=== PATIENT | female | born 1950 | race Caucasian/White ===

== ENCOUNTER → 2016-05-18 10:03 | Day surgery (SDC) | payer MEDICARE, OTHER ==
[~2016-05-18 10:03] MED LIST: Lidocain 1% EPI 1:100,000 * 30 ML MDV ONE; Sodium Bicarbonate 8.4% SYR* 10 ML SYRINGE ONE
[2016-05-18 13:01] VITALS: BP 120/76
--- NOTE | 2016-05-19 10:58 | OP ---
DATE OF OPERATION: 05/18/16 - [facility] DATE OF : 50 SURGEON: Vincenzo Arriola MD SUPERVISOR LIME: DEANA Sheikh ANESTHESIOLOGIST: None. ANESTHESIA: Local only with 1% lidocaine with epinephrine. PRE-OP DIAGNOSIS: Left palm mass. POST-OP DIAGNOSIS: Left palm mass consistent with Dupuytren disease. OPERATIVE PROCEDURE: Excision of Dupuytren disease, left palm. INDICATIONS: Marion is a 65-year-old female with enlarging mass in the left palm. In the absence of other Dupuytren disease, she also had began to develop a little bit of an extension of the nodule proximally in line with the long finger ray. We had talked about risks and benefits and she had elected to undergo excision of the mass. ESTIMATED BLOOD LOSS: 5 mL. COMPLICATIONS: None. FINDINGS: The mass is consistent with Dupuytren nodule and a little bit of a developing central core coming back proximally. DESCRIPTION OF PROCEDURE: Marion was seen in the preoperative holding area and the correct site and side were marked. We had a time-out. Then, I injected the operative area with 1% lidocaine with epinephrine. We awaited for about 20 to 30 minutes. Then, we came back to the operating room, where the arm was prepped and draped in the usual fashion and a formal time-out was performed. A Phi incision was made over the nodule and coming back a little bit over that central cord. Full-thickness flaps were raised right off of the palmar fascia. This was noticed to be and that mass was a large Dupuytren nodule. After full-thickness flaps were raised and sewn back, I went ahead and clipped the central cord proximally and then raised it directly off the flexor tendon sheath, snipping the vertical septa of Legueu and Juvara as well, till I had excised the entirety of the diseased tissue. The proximal aspect of the A1 kristin was visualized after the Dupuytren disease was excised. At this point, everything looked good. She was able to make a nice fist and fully open and close the fingers. I went ahead and irrigated the wound and closed the wound with some 5-0 nylon suture. Wound was then dressed with Xeroform, 4x4, some sterile Webril, and gauze. She was taken to the recovery room in stable condition. [id number]/[facility] #: [id number] [facility]
== END | disposition home or self-care (01) ==
LOC: OREAST 10:03
PROVIDERS: ATTEND Orthopaedic Surgery Hand Surgery
DX: M72.0 Palmar fascial fibromatosis [Dupuytren] (principal)
CPT/HCPCS: 88304

== ENCOUNTER 2016-08-29 20:36 | Emergency (ER) | payer OTHER ==
[2016-08-29 20:50] VITALS: BP 130/90
[2016-08-29] MEDS ORDERED: Lidocaine 1% MPF* 2 ML VIAL INJ ONE (21:06)
--- NOTE | 2016-08-29 21:06 | UC ---
Laceration HPI - HPI Summary HPI Summary: WASHING DISHES TONIGHT ABOUT 90 MINUTES AGO. ACCIDENTALLY CRASHED A GLASS AGAINST THE FAUCET WHICH BROKE IN HER HAND. SUSTAINED A LACERATION TO PROXIMAL RIGHT 5TH FINGER. LAST TETANUS JUNE 2016. - History Of Current Complaint Chief Complaint: UCLaceration Stated Complaint: HAND LACERATION Time Seen by Provider: 08/29/16 20:53 Hx Obtained From: Patient Laceration Location: Finger - RIGHT 5TH FINGER Mechanism Of Injury: Sharp Trauma Severity: Moderate Pain Intensity: 6 Pain Scale Used: 0-10 Numeric Aggravating Factors: Movement Related History: Dominant Hand Right - Allergies/Home Medications Allergies/Adverse Reactions: Allergies Allergy/AdvReac Type Severity Reaction Status Date / Time Interferons Allergy Intermediate See Comment Verified 08/29/16 20:50 Iodixanol [From Visipaque] Allergy Intermediate Swelling Verified 08/29/16 20:50 Of Face,Lips,& Throat PMH/Surg Hx/FS Hx/Imm Hx Endocrine History Of: Reports: Thyroid Disease, Hypothyroidism Denies: Diabetes Cardiovascular History Of: Denies: Cardiac Disorders, Hypertension, Congestive Heart Failure Respiratory History Of: Reports: Asthma Denies: COPD GI/ History Of: Denies: Renal Disease Cancer History Of: Denies: Breast Cancer - Surgical History Surgical History: Yes Surgery Procedure, Year, and Place: thyroidectomy - cancer. partial nephrectomy (right) - cancer - Family History Known Family History: Negative: Hypertension - Social History Alcohol Use: Weekly Substance Use Type: None Smoking Status (MU): Never Smoked Tobacco Review of Systems Constitutional: Negative Skin: Other - LACERATION Respiratory: Negative Cardiovascular: Negative Gastrointestinal: Negative All Other Systems Reviewed And Are Negative: Yes Physical Exam Triage Information Reviewed: Yes Appearance: Well-Appearing, No Pain Distress, Well-Nourished Vital Signs: Initial Vital Signs Temp 97.9 F 08/29/16 20:45 Pulse 92 08/29/16 20:45 Resp 16 08/29/16 20:45 BP 130/90 08/29/16 20:45 Pulse Ox 98 08/29/16 20:45 Vital Signs Reviewed: Yes Eyes: Positive: Conjunctiva Clear ENT: Positive: Hearing grossly normal Neck: Positive: Supple Respiratory: Positive: No respiratory distress, No accessory muscle use Cardiovascular: Positive: Pulses Normal Abdomen Description: Positive: Soft Musculoskeletal: Positive: ROM Intact, No Edema Neurological: Positive: Alert Psychological: Positive: Normal Response To Family, Age Appropriate Behavior Skin: Positive: Other - 1.5CM LINEAR LACERATION PROXIMAL MEDIAL RIGHT 5TH FINGER Laceration Repair - Laceration Repair 1 Description: Linear Laceration Size After Repair: Length (cm) - 1.5CM, Width (mm) - 0MM, Depth (mm) - 4MM Modified For Repair: No Type Injection: Local Anesthesia Used: 1.0% Lido Irrigation With Pressure Irrigation Device: Yes Closure Material: Sutures - 5 SIMPLE INTERRUPTED Closure Method: Single Layer Suture Of: Skin Suture Type: Other - 5-0 SURGIPRO Laceration Course/Dx - Differential Dx - Laceration/Wound Provider Diagnoses: LACERATION REPAIR RIGHT 5TH FINGER Discharge - Discharge Plan Condition: Stable Disposition: HOME Patient Education Materials: Laceration (ED) Referrals: Jovanni Pacheco MD [Primary Care Provider] - If Needed Additional Instructions: APPLY THIN LAYER ANTIBIOTIC OINTMENT UNDER BANDAGE FOR FIRST 3-4 DAYS ONLY. CHANGE BANDAGE DAILY AND NEEDED IF IT BECOMES SOILED OR WET. SEEK FOLLOW-UP IF YOU DEVELOP SPREADING REDNESS OF THE SKIN, PURULENT DRAINAGE, FEVER, INCREASED PAIN OR ANY OTHER CONCERNING SYMPTOMS. RETURN FOR SUTURE REMOVAL IN 10 DAYS
== END 2016-08-29 22:05 | disposition home or self-care (01) ==
LOC: UCEAST 20:36
DX: S61.216A Laceration without foreign body of right little finger without damage to nail, initial encounter (principal); W25.XXXA Contact with sharp glass, initial encounter; Y93.G1 Activity, food preparation and clean up; Y92.9 Unspecified place or not applicable; E03.9 Hypothyroidism, unspecified; J45.909 Unspecified asthma, uncomplicated
CPT/HCPCS: 12001; 99211; G0463

== ENCOUNTER 2016-09-13 12:18 | Emergency (ER) | payer MEDICARE ==
--- NOTE | 2016-09-13 15:06 | UC ---
HPI Wound/Suture Re-check - HPI Summary HPI Summary: 66 y/o female presents to the urgent care for stich removal. Patient reports wound is healing well and denies pain, redness, SOB, chest pain, N/V/D - History Of Current Complaint Stated Complaint: STITCH REMOVAL Time Seen by Provider: 09/13/16 15:03 Hx Obtained From: Patient Surgical Site: RT fifth digit above the PIJ Pain Intensity: 0 Pain Scale Used: 0-10 Numeric Procedure Type: stich removal - Allergies/Home Medications Allergies/Adverse Reactions: Allergies Allergy/AdvReac Type Severity Reaction Status Date / Time Interferons Allergy Intermediate See Comment Verified 09/13/16 15:09 Iodixanol [From Visipaque] Allergy Intermediate Swelling Verified 09/13/16 15:09 Of Face,Lips,& Throat PMH/Surg Hx/FS Hx/Imm Hx Previously Healthy: Yes - Surgical History Surgical History: Yes Surgery Procedure, Year, and Place: thyroidectomy - cancer. partial nephrectomy (right) - cancer - Family History Known Family History: Negative: Hypertension - Social History Alcohol Use: Weekly Substance Use Type: None Smoking Status (MU): Never Smoked Tobacco Review of Systems Constitutional: Negative Skin: Other - laceration in the fifth dig above the PIJ with 5 stiches ENT: Negative Respiratory: Negative Cardiovascular: Negative Gastrointestinal: Negative Genitourinary: Negative Motor: Negative Neurovascular: Negative Musculoskeletal: Negative Neurological: Negative Psychological: Negative All Other Systems Reviewed And Are Negative: Yes Physical Exam Triage Information Reviewed: Yes Appearance: Well-Appearing, No Pain Distress, Well-Nourished, Thin Vital Signs Reviewed: Yes Eye Exam: Normal ENT Exam: Normal Neck exam: Normal Neck: Positive: Supple, Nontender Respiratory Exam: Normal Respiratory: Positive: Chest non-tender, Lungs clear Skin Exam: Normal - fifth digit with sutured laceration above the PIJ. healing well no erythema or swelling observed. No tenderness on palpation. Neurovascular intact. Course/Dx - Course Course Of Treatment: Patient presented today for suture removal at the right fifth digit above the PIJ, healing well. 5 stitches removed without any problem. Patient tolerated well procedure. Skin was well approximated. No erythema or swelling observed. Neurovascular intact. Patient advised to keep wound dry. - Differential Dx - Laceration/Wound Provider Diagnoses: Suture removal Discharge - Discharge Plan Condition: Stable Disposition: HOME Patient Education Materials: Laceration (ED) Referrals: Jovanni Pacheco MD [Primary Care Provider] - Additional Instructions: please keep the wound dry at all times. If symptoms worsen please return to the urgent care for further treatment.
[2016-09-13 15:08] VITALS: BP 122/84
== END 2016-09-13 15:43 | disposition home or self-care (01) ==
LOC: UCEAST 12:18
DX: S61.216D Laceration without foreign body of right little finger without damage to nail, subsequent encounter (principal); X58.XXXD Exposure to other specified factors, subsequent encounter; Y92.9 Unspecified place or not applicable; Z91.041 Radiographic dye allergy status

== ENCOUNTER 2017-08-17 05:59 | Day surgery (SDC) | payer MEDICARE ==
[~2017-08-17 05:59] MED LIST changes: +Buffered Lidocaine 0.9% SYRIN* 5 ML/SYR SYRINGE INTRADERM ONE; -Lidocain 1% EPI 1:100,000 * 30 ML MDV ONE; -Sodium Bicarbonate 8.4% SYR* 10 ML SYRINGE ONE
[2017-08-17] MEDS ORDERED: Famotidine TAB* 20 MG PO ONE (06:00)
[2017-08-17] MEDS ORDERED: Famotidine TAB* 20 MG ONE (06:08)
[2017-08-17] MEDS ORDERED: Buffered Lidocaine 0.9% SYRIN* 5 ML/SYR SYRINGE ONE (06:08)
[2017-08-17 06:50] LABS: ABS Basophils 0.1 10^3/ul (0-0.2); ABS Eosinophils 0.1 10^3/ul (0-0.6); ABS Lymphocytes 2.1 10^3/ul (1.0-4.8); ABS Monocytes 0.4 10^3/ul (0-0.8); ABS Neutrophils 4.7 10^3/ul (1.5-7.7); ABS Nucleated RBC 0 10^3/ul; Eosinophil % 1.4 % (0-6); Hematocrit 43 % (35-47); Hemoglobin 14.6 g/dl (12.0-16.0); Lymphocyte % 28.4 % (25-47); Mean Corpuscular HGB Conc 34 g/dl (31-36); Mean Corpuscular Hemoglobin 29 pg (27-31); Mean Corpuscular Volume 85 fL (80-97); Mean Platelet Volume 7.4 um3 (7.4-10.4); Nucleated Red Blood Cells % 0.1; Platelet Count 234 10^3/ul (150-450); Red Blood Count 5.04 10^6/ul (4.0-5.4); Red Cell Distribution Width 14 % (10.5-15); White Blood Count 7.5 10^3/ul (3.5-10.8)
[2017-08-17] MEDS ORDERED: ceFOXitin(*) 2 GM in NS 0.9% 50 ML* 50 ML IVPB ONE (07:00)
[2017-08-17] MEDS ORDERED: Lidocaine 1% INJ* 10 MG/ML 30 ML SDV ONE (07:13)
[2017-08-17] MEDS ORDERED: Midazolam* 1 MG/ML 5 ML VIAL (5 MG) ONE (07:20)
[2017-08-17] MEDS ORDERED: fentaNYL* 50 MCG/ML 2 ML VIAL (100 MCG VIAL) ONE (07:20)
[2017-08-17] MEDS ORDERED: Ketorolac INJ* 30 MG/ML 1 ML VIAL ONE (08:14)
[2017-08-17] MEDS ORDERED: Propofol* 10 MG/ML 20 ML BTL IV PUSH ONE (08:14)
[2017-08-17] MEDS ORDERED: DiMENhydriNATE IV* 50 MG/ML VIAL ONE (08:14)
[2017-08-17] MEDS ORDERED: Lidocaine 2% PF * 5 ML VIAL ONE (08:14)
[2017-08-17 08:54] VITALS: BP 146/83
[2017-08-17] MEDS ORDERED: Naloxone* 0.4 MG/ML 1 ML VIAL IV PRN (09:19)
[2017-08-17] MEDS ORDERED: Acetaminophen TAB* 325 MG PO PRN (09:19)
--- NOTE | 2017-08-18 00:50 | OP ---
OPERATIVE REPORT: DATE OF OPERATION: 08/17/17 DATE OF : 50 SURGEON: Marily Arzate MD PRE-OP DIAGNOSIS: Right labial vulval intra-epithelia neoplasm III. POST-OP DIAGNOSIS: Right labial vulval intra-epithelia neoplasm III. OPERATIVE PROCEDURE: Wide local excision of right labial lesion. FINDINGS: Revealed an old biopsy site at the inferior margin of the right labia majora, postop greater than 2 cm margin around prior biopsy site. ESTIMATED BLOOD LOSS: Minimal. URINE OUTPUT: 250 cc of clear yellow urine. FLUIDS: 750 cc of crystalloid. SPECIMEN: Right labial biopsy, marked at 12 o'clock. COMPLICATIONS: None apparent. DISPOSITION: Stable to recovery room. DESCRIPTION OF PROCEDURE: The patient was placed in dorsal lithotomy position. Legs were placed in universal Kushal stirrups. The perineum and vagina were prepped and draped in a sterile standard fashion. The patient was identified with universal protocol for correct procedure, position, and the patient. Anesthesia was sedation and local with infusion of 29 cc of 1% lidocaine circumferentially around biopsy site. Using an 11 scalpel, greater than 2 cm margin from the original biopsy site was excised in an elliptical fashion, the base underneath the biopsy site with approximately 1 cm depth . The superior margin at 12 o'clock was marked with suture. The base of the defect was then reapproximated using 2-0 Polysorb in an interrupted fashion x7 for complete closure of the defect. The skin was then reapproximated with 4-0 Monocryl in a subcuticular fashion and glue was then applied on the skin. All sponge, instrument, and blade counts were correct throughout the case. The patient tolerated the procedure well and went to recovery room in stable condition. [id number]/[facility] #: [id number] [facility]
== END 2017-08-17 09:09 | disposition home or self-care (01) ==
LOC: OR 05:59
PROVIDERS: ATTEND Obstetrics & Gynecology
DX: D07.1 Carcinoma in situ of vulva (principal); Z87.412 Personal history of vulvar dysplasia; Z85.528 Personal history of other malignant neoplasm of kidney; E89.0 Postprocedural hypothyroidism; Z85.850 Personal history of malignant neoplasm of thyroid; F41.8 Other specified anxiety disorders; Z85.828 Personal history of other malignant neoplasm of skin; K21.9 Gastro-esophageal reflux disease without esophagitis; B18.2 Chronic viral hepatitis C
CPT/HCPCS: 36415; 84439; 84443; 85025; 86850; 86900; 86901; 88305; A9270-GY; J0694; J1240; J1885; J2250; J2704; J3010

== ENCOUNTER 2024-01-16 10:53 | Inpatient (IN) ==
[2024-01-16 11:39] LABS: ABS Basophils 0.1 10^3/uL (0.0-0.1); ABS Eosinophils 0.1 10^3/uL (0.0-0.5); ABS Lymphocytes 2.5 10^3/uL (1.0-4.8); ABS Monocytes 0.4 10^3/uL (0.0-0.9); ABS Neutrophils 5.7 10^3/uL (1.5-7.6); ABS Nucleated RBC 0.01 10^3/ul; Eosinophil % 1.2 %; Hematocrit 46.7 % (35-45); Hemoglobin 15.6 g/dL (11.5-14.3); Lymphocyte % 28.3 %; Mean Corpuscular Hemoglobin 28.9 pg (27-33); Mean Corpuscular Hgb Conc 33.4 g/dL (31-36); Mean Corpuscular Volume 86.3 fL (80-97); Mean Platelet Volume 7.3 fL (7.5-11.2); Nucleated Red Blood Cells % 0.2 %/100WBC (0.0-0.8); Platelet Count 306 10^3/uL (150-450); Red Blood Count 5.41 10^6/uL (3.63-4.92); White Blood Count 8.8 10^3/uL (3.8-11.8)
[2024-01-16 11:52] LABS: INR 1.04 (0.85-1.14)
[2024-01-16] MEDS: TENECTEPLASE 50 MG VIAL KIT 5 MG/ML (reconstituted) IV ONE (12:16)
[2024-01-16 12:44] LABS: Albumin 4.8 g/dL (3.2-5.2); Calcium 9.4 mg/dL (8.6-10.3); Creatinine, Serum 0.96 mg/dL (0.51-0.95); Globulin 2.4 g/dL (2-4); Potassium 4.1 mmol/L (3.5-5.0); Total Bilirubin 0.6 mg/dL (0.2-1.0); Total Protein 7.2 g/dL (6.4-8.9); eGFR CKD-EPI 62.5 (>60)
[2024-01-16] MEDS: Morphine 4 MG/ML VIAL (1 ml) IV ONE (12:51)
[2024-01-16 13:07] LABS: Albumin/Globulin Ratio 1.7 (1-3); Calcium 8.9 mg/dL (8.6-10.3); Creatinine, Serum 0.99 mg/dL (0.51-0.95); Direct Bilirubin 0.1 mg/dL (0.03-0.18); Globulin 2.3 g/dL (2-4); HDL Cholesterol 49.1 mg/dL; Indirect Bilirubin 0.4 mg/dL (0.3-1.0); Potassium 4.5 mmol/L (3.5-5.0); Total Bilirubin 0.5 mg/dL (0.2-1.0); Total Protein 6.3 g/dL (6.4-8.9); eGFR CKD-EPI 60.2 (>60)
[2024-01-16 13:36] LABS: High Sensitivity Troponin 1 Hr 12 pg/mL (<15)
[2024-01-16 14:34] LABS: Hematocrit 42.2 % (35-45); Hemoglobin 14.2 g/dL (11.5-14.3)
[2024-01-16] MEDS ORDERED: Sulfur Hexaflouride MICROSPHR 25 MG VIAL IV PRN (14:40)
[2024-01-16] MEDS: Ondansetron 4 mg VIAL 2 MG/ML 2 ml VIAL IV PRN (15:47)
[2024-01-16] MEDS: Lactated Ringers 1000 ml BAG 250 ML IV ONE (15:49)
[2024-01-16] MEDS: Morphine 2 MG/ML SYRINGE IV PRN (16:26)
[2024-01-16 18:48] LABS: ABS Basophils 0.1 10^3/uL (0.0-0.1); ABS Lymphocytes 1.1 10^3/uL (1.0-4.8); ABS Monocytes 0.5 10^3/uL (0.0-0.9); ABS Neutrophils 12.4 10^3/uL (1.5-7.6); Eosinophil % 0.1 %; Hematocrit 39.8 % (35-45); Lymphocyte % 7.9 %; Mean Corpuscular Hemoglobin 28.4 pg (27-33); Mean Corpuscular Hgb Conc 32.6 g/dL (31-36); Mean Corpuscular Volume 87.1 fL (80-97); Mean Platelet Volume 7.6 fL (7.5-11.2); Platelet Count 253 10^3/uL (150-450); Red Blood Count 4.57 10^6/uL (3.63-4.92)
[2024-01-17 01:54] LABS: Urine Appearance Clear; Urine Bilirubin Negative (Negative); Urine Blood Negative (Negative); Urine Color Yellow; Urine Glucose Negative (Negative); Urine Ketones Trace (Negative); Urine Nitrite Negative (Negative); Urine Protein Negative (Negative); Urine Specific Gravity 1.021 (1.002-1.030); Urine Urobilinogen Negative (Negative)
[2024-01-17 04:42] LABS: ABS Lymphocytes 1.9 10^3/uL (1.0-4.8); ABS Monocytes 0.5 10^3/uL (0.0-0.9); ABS Neutrophils 6.2 10^3/uL (1.5-7.6); ABS Nucleated RBC 0.01 10^3/ul; Eosinophil % 0.5 %; Hematocrit 37.5 % (35-45); Hemoglobin 12.6 g/dL (11.5-14.3); Lymphocyte % 21.4 %; Mean Corpuscular Hemoglobin 29.3 pg (27-33); Mean Corpuscular Hgb Conc 33.6 g/dL (31-36); Mean Corpuscular Volume 87.3 fL (80-97); Mean Platelet Volume 7.7 fL (7.5-11.2); Nucleated Red Blood Cells % 0.1 %/100WBC (0.0-0.8); Platelet Count 250 10^3/uL (150-450); Red Cell Distribution Width 14.2 % (12-17); White Blood Count 8.7 10^3/uL (3.8-11.8)
[2024-01-17 05:10] LABS: Anion Gap 4 mmol/L (2-16); Blood Urea Nitrogen 13 mg/dL (6-24); CO2 Carbon Dioxide 30 mmol/L (22-32); Chloride 103 mmol/L (101-111); Creatinine, Serum 0.91 mg/dL (0.51-0.95); Glucose 103 mg/dL (70-100); Sodium 137 mmol/L (135-145); eGFR CKD-EPI 66.6 (>60)
[2024-01-17 06:22] LABS: Phosphorus 4.3 mg/dL (2.5-5.0); Potassium Redraw 4.3 mmol/L (3.5-5.0)
[2024-01-17] MEDS: Acetaminophen IV 1 GM/100ML 1,000 MG/100 ML BAG IV PRN (07:15)
[2024-01-18 05:40] LABS: ABS Basophils 0.1 10^3/uL (0.0-0.1); ABS Eosinophils 0.2 10^3/uL (0.0-0.5); ABS Lymphocytes 2.6 10^3/uL (1.0-4.8); ABS Monocytes 0.5 10^3/uL (0.0-0.9); ABS Neutrophils 4.9 10^3/uL (1.5-7.6); ABS Nucleated RBC 0.01 10^3/ul; Hemoglobin 11.8 g/dL (11.5-14.3); Lymphocyte % 31.8 %; Mean Corpuscular Hemoglobin 29.4 pg (27-33); Mean Corpuscular Hgb Conc 33.8 g/dL (31-36); Mean Corpuscular Volume 86.9 fL (80-97); Mean Platelet Volume 7.4 fL (7.5-11.2); Nucleated Red Blood Cells % 0.1 %/100WBC (0.0-0.8); Platelet Count 211 10^3/uL (150-450); Red Blood Count 4.03 10^6/uL (3.63-4.92); Red Cell Distribution Width 14.1 % (12-17); White Blood Count 8.3 10^3/uL (3.8-11.8)
[2024-01-18 06:34] LABS: Creatinine, Serum 0.88 mg/dL (0.51-0.95); Phosphorus 4.1 mg/dL (2.5-5.0); Potassium 4.2 mmol/L (3.5-5.0); eGFR CKD-EPI 69.3 (>60)
[2024-01-18] MEDS ORDERED: Ondansetron ODT 4 mg TAB 4 MG TAB SL PRN (10:19)
[2024-01-19 10:01] VITALS: BP 107/67
[2024-01-19] MEDS: Influenza Vaccine *TRI* 2024-25* 0.5 ML SYRINGE IM ONE (11:32)
[2024-01-19] MEDS: COVID VAC 24-25 (12+) (Moderna) Syringe 0.5 mL IM ONE (11:37)
== END 2024-01-19 12:01 | disposition home or self-care (01) | DRG 63 ==
LOC: EDHOLD 10:53 → ED 10:53 → ICU 13:56 → MEDTELE 01-19 04:20
PROVIDERS: ADMIT Student in an Organized Health Care Education/Training Program; ATTEND Internal Medicine